=== PATIENT | male | born 1960 | race Caucasian/White ===

== ENCOUNTER 2018-12-28 07:49 | Inpatient (IN) ==
[2018-12-28 08:31] LABS: URINE SOURCE CLEAN CATCH
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
[2018-12-28 08:34] LABS: BASO# 0.03 X1000 (0.0-0.2); BASO% 0.5 % (0.0-0.8); EOS# 0.13 X1000 (0.0-0.7); EOS% 2.3 % (0.0-10.0); HEMATOCRIT 35.8 % (42.0-52.0); HEMOGLOBIN 11.4 g/dL (14.0-18.0); LYMPH# 1.79 X1000 (1.2-3.4); LYMPH% 32.3 % (20.5-51.1); MCH 28.1 PG (27-31); MCHC 31.8 g/dL (33-37); MCV 88.4 FL (81-99); MONO# 0.48 X1000 (0.11-0.59); MONO% 8.7 % (1.7-9.3); MPV 9.7 FL (7.4-10.4); NEUT# 3.11 X1000 (1.4-6.5); NEUT% 56.2 % (42.2-75.2); PLT 253 X1000 (130-400); RBC 4.05 XMIL (4.7-6.1); RDW 15.8 % (11.5-14.5); WBC 5.54 X1000 (4.8-10.8)
[2018-12-28 08:36] LABS: BILIRUBIN URINE NEGATIVE (NEGATIVE); BLOOD URINE SMALL (NEGATIVE); COLOR YELLOW; GLUCOSE URINE NEGATIVE (NEGATIVE); KETONE URINE NEGATIVE (NEGATIVE); LEUKOCYTES URINE NEGATIVE (NEGATIVE); NITRITE URINE NEGATIVE (NEGATIVE); PH URINE 6.5; PROTEIN URINE TRACE mg/dL (NEGATIVE); SP GRAVITY URINE 1.012; TURBIDITY URINE CLEAR (CLEAR); UROBILINOGEN URINE NORMAL (NORMAL)
[2018-12-28 08:37] LABS: UR EPITHELIAL CELLS <10 /HPF (<10); URINE BACTERIA NEGATIVE /HPF; URINE RBC <10 /HPF (<10); URINE WBC <10 /HPF (<10)
--- NOTE | 2018-12-28 08:39 | Diag Imaging Result Doc PS360 ---
EXAM: CHEST-1 VIEW 12/28/2018 HISTORY: psych TECHNIQUE: AP portable upright at 0826 COMMENT: There are no previous studies. There is ill-defined minimal opacity in the left base which may be due to bronchopneumonia. Advise clinical correlation. If possible a lateral might help. IMPRESSION: Questionable left lower lobe pneumonia. Electronically signed by Eliazar Trimble 12/28/2018 8:37 AM
[2018-12-28 08:47] LABS: UR AMPHETAMINES QUAL NONE DETECTED (NONE DETECT); UR BARBITUATES QUAL NONE DETECTED (NONE DETECT); UR BENZODIAZEPIN QUAL NONE DETECTED (NONE DETECT); UR CANNABINOIDS QUAL NONE DETECTED (NONE DETECT); UR COCAINE QUAL NONE DETECTED (NONE DETECT); UR METHADONE QUAL NONE DETECTED (NONE DETECT); UR OPIATES QUAL NONE DETECTED (NONE DETECT); UR OXYCODONE QUAL NONE DETECTED (NONE DETECT); UR PCP QUAL NONE DETECTED (NONE DETECT)
[2018-12-28 08:52] LABS: ACETAMINOPHEN < 1.2 ug/mL (10-30); AGAP 10; ALBUMIN 3.5 g/dL (3.5-5.0); ALKALINE PHOSPHATASE 92 U/L (32-122); BUN 9 mg/dL (8-22); CALCIUM 8.1 mg/dL (8.8-10.2); CHLORIDE 105 mmol/L (98-107); COSMO 274; CREATININE 0.8 mg/dL (0.7-1.2); ESTIMATED GFR > 60; GLUCOSE 94 mg/dL (70-104); GOT 15 U/L (10-34); GPT 9 U/L (10-44); POTASSIUM 3.9 mmol/L (3.5-5.1); SALICYLATES < 3.00 mg/dL (3-10); SODIUM 138 mmol/L (136-145); TCO2 23 mmol/L (25-35); TOTAL BILIRUBIN 0.76 mg/dL (0.20-1.00); TOTAL PROTEIN 7.1 g/dL (6.3-8.3)
[2018-12-28 09:25] LABS: FREE T4 1.13 ng/dL (0.93-1.70); TSH 1.38 uIUmL (0.27-4.20)
[2018-12-28] MEDS ORDERED: ZYPREXA PO ONE (09:47)
[2018-12-28] MEDS ORDERED: HALDOL IM ONE ×2 (12:15→15:25)
[2018-12-29] MEDS ORDERED: HALDOL IM ONE ×2 (04:41→20:03)
[2018-12-29] MEDS ORDERED: TYLENOL PO ONE ×2 (13:54→17:51)
--- NOTE | 2018-12-29 18:59 | Diag Imaging Result Doc PS360 ---
EXAM: CHEST-PORTABLE 12/29/2018 HISTORY: cough TECHNIQUE: AP portable upright at 1840 COMMENT: There is ill-defined opacity in the left base which was also present on 12/28/2018. There are no previous studies available for comparison. IMPRESSION: Left lower lobe pneumonia versus fibrosis. Electronically signed by Eliazar Trimble 12/29/2018 6:56 PM
--- NOTE | 2018-12-29 20:26 | Diag Imaging Result Doc PS360 ---
EXAM: CT THORAX W/O CONTRAST 12/29/2018 HISTORY: LLL Pneumonia vs fibrosis TECHNIQUE: This exam was performed using automated exposure control, adjustment of mA or kV according to patient size, and/or use of iterative reconstruction technique. COMMENT: There are no previous studies available for comparison. There is aorticopulmonary window adenopathy with a node measuring in excess of 17 mm. There are calcifications in the coronary arteries. There are no abnormal fluid collections. There are subpleural emphysematous changes in the right apex. There are diffuse small acinar opacities throughout both lungs with tree-in-bud opacities present in the lower portions of the upper lobes bilaterally and particularly in the left lower lobe. There is no evidence of honeycombing or bronchiectasis. There are some spondylotic changes in the lower cervical spine and to a lesser extent in the thoracic spine. There is no evidence of acute bony abnormality. IMPRESSION: Bronchiolitis, mild or early pneumonia and/or granulomatous disease. Comparison with previous studies would be helpful. Electronically signed by Eliazar Trimble 12/29/2018 8:23 PM
[2018-12-29] MEDS ORDERED: LEVAQUIN PO ONE (21:27)
[2018-12-30] MEDS ORDERED: TYLENOL PO PRN (00:16)
[2018-12-30] MEDS: DUONEB (A & A) INH SCH ×2 (03:00→15:36)
[2018-12-30] MEDS ORDERED: ATIVAN IM ONE (03:15)
[2018-12-30] MEDS: HALDOL IM PRN (03:28)
[2018-12-30 05:11] LABS: BASO# 0.02 X1000 (0.0-0.2); BASO% 0.5 % (0.0-0.8); EOS# 0.15 X1000 (0.0-0.7); EOS% 3.6 % (0.0-10.0); HEMATOCRIT 35.4 % (42.0-52.0); HEMOGLOBIN 11.1 g/dL (14.0-18.0); LYMPH# 1.44 X1000 (1.2-3.4); LYMPH% 34.4 % (20.5-51.1); MCH 28.1 PG (27-31); MCHC 31.4 g/dL (33-37); MCV 89.6 FL (81-99); MONO# 0.31 X1000 (0.11-0.59); MONO% 7.4 % (1.7-9.3); MPV 9.2 FL (7.4-10.4); NEUT# 2.26 X1000 (1.4-6.5); NEUT% 54.1 % (42.2-75.2); PLT 256 X1000 (130-400); RBC 3.95 XMIL (4.7-6.1); RDW 15.8 % (11.5-14.5); WBC 4.18 X1000 (4.8-10.8)
[2018-12-30 05:26] LABS: AGAP 8; ALB/GLOB RATIO 1.1; ALBUMIN 3.3 g/dL (3.5-5.0); ALKALINE PHOSPHATASE 80 U/L (32-122); BUN 10 mg/dL (8-22); CALCIUM 8.4 mg/dL (8.8-10.2); CHLORIDE 104 mmol/L (98-107); COSMO 271; CREATININE 0.7 mg/dL (0.7-1.2); ESTIMATED GFR > 60; GLUCOSE 98 mg/dL (70-104); GOT 17 U/L (10-34); GPT 9 U/L (10-44); POTASSIUM 4.2 mmol/L (3.5-5.1); SODIUM 136 mmol/L (136-145); TCO2 24 mmol/L (25-35); TOTAL BILIRUBIN 0.35 mg/dL (0.20-1.00); TOTAL PROTEIN 6.3 g/dL (6.3-8.3)
--- NOTE | 2018-12-30 07:04 | HISTORY AND PHYSICAL ---
REASON FOR ADMISSION: Cough for 4 months, fever 4 days and shortness of breath today. HISTORY OF PRESENT ILLNESS: Mr. Eric Weems is a 58-year-old man with known psychiatric issues. He is currently being held because of having homicidal ideations. When he came in he had a routine chest film because he complained of cough. At that time the x-ray was done with questionable left lower lobe pneumonia, but the patient was not unstable and did not have any objective fevers so we at that time were trying to transfer him to [facility] but they said they will not accept him until he is completely treated for his pneumonia. A CT scan was done to confirm officially that he had pneumonia and did suggest he has bronchitis. The patient admits to having a 4-day history of subjective fever and has a 4- month history of cough that comes on and off. No wheezing. No postnasal drip. No GI or complaints. No leg swelling or extremity redness. He denies any night sweats and he claims he has had 50 pound weight loss in 1 week. However, his appetite is very good. Mr. Eric Weems actually was asking me for more food when I was in the room. No polyuria, polydipsia or heat intolerance. REVIEW OF SYSTEMS: Patient is a very poor historian to be honest. His history cannot be relied on. However, his 12 systems were negative other than the findings noted as above. ALLERGIES: Geodon. MEDICATIONS: Home medications have not been reconciled. FAMILY HISTORY: Only notable for diabetes. SOCIAL HISTORY: Smokes 1 pack a day. No alcohol or illicit drug use. SURGERIES: He has only had an inguinal hernia surgery and back excised. LABORATORY WORK: White count 5000, hemoglobin and hematocrit 11 and 35, platelets 253,000. B12 is low at 211. UDS is negative including acetaminophen and salicylate. Urinalysis is grossly unremarkable. PHYSICAL EXAMINATION: VITAL SIGNS: His blood pressure is 153/91, heart rate is 70, respirations 16, temperature is 97.5. He is 98% on room air. GENERAL: Mr. Eric Weems is a 58-year-old man who is not in acute distress. He is alert and oriented to person, time, with normal mood and affect. He has no overt auditory hallucinations at this point in time. HEENT: Head is normocephalic, atraumatic. Eyes, FRANSISCO, EOMI. He is anicteric, not pale. ENT exam is grossly normal. NECK: Supple. No JVD or carotid bruit. No thyromegaly. CHEST: Clear when auscultated with no added sounds. CARDIOVASCULAR: First and 2nd heart sounds heard. No gallops or rubs. Rhythm is regular with occasional skipped beats. ABDOMEN: Benign, soft. No tenderness or megaly. Bowel sounds are normal. RECTAL: Exam deferred at this time. EXTREMITIES: Good distal pulses. Pulse volumes symmetrical, regular. No edema, clubbing or peripheral cyanosis. No gross focal deficits. No tremors. SKIN: Intact. No breakdown, lesion, erythema. MUSCULOSKELETAL: Grossly normal. ASSESSMENT: 1. Left lower lobe pneumonia. 2. Elevated blood pressure. 3. Vitamin B12 deficiency. 4. Chronic anemia. PLAN: We will start patient on p.o. Levaquin. Patient is always pulling out his IVs and does not allow for intravenous treatment at this point in time. We will also give patient p.r.n. nebulizer treatments. We will give patient IM vitamin B12 shots. Do an EKG to ensure no QT prolongation risk with Levaquin since patient may probably be started antipsychotics which also in their own right may increase the risk for QT prolongation. Patient can be assessed on a day-to-day basis and from my standpoint can be transferred and treated with oral agents across the street. The patient will also need one-to-one observation while he is under our service prior to transfer. cc: Corbin Morrell MD
--- NOTE | 2018-12-30 09:36 | EKG Report ---
Test Performed on : 12/28/2018 08:23:17 AM Test Reason : psych Blood Pressure : / mmHG Vent. Rate : 084 BPM Atrial Rate : 084 BPM P-R Int : 166 ms QRS Dur : 072 ms QT Int : 370 ms P-R-T Axes : 093 034 063 degrees QTc Int : 437 ms Normal sinus rhythm. Normal ECG When compared with ECG of 16-AUG-2018 06:56, No significant change was found Unconfirmed Result
--- NOTE | 2018-12-30 10:52 | PROGRESS NOTE ---
DATE: 12/30/2018 SUBJECTIVE: The patient resting in bed not in any obvious distress. OBJECTIVE: Vital Signs: Temperature 97.4 degrees, pulse 78, respiratory rate 20, blood pressure 148/75, and oxygen 99%. HEENT: Atraumatic, normocephalic. Cardiovascular: S1, S2. Respiratory: Evidence of good air entry bilaterally. Abdomen: Soft and nontender. No masses felt. Extremities: No evidence of edema. Central nervous system: No obvious focal deficit noted. LABORATORY: WBC is 4.1, hematocrit 35.4, with a platelet count of 256,000. Sodium is 136, potassium 4.2, chloride 104, bicarb is 24, BUN is 10, and creatinine 0.7. Chest CT shows a bronchiolitis which mild or early pneumonia or granulomatous disease. ASSESSMENT AND PLAN: 1. Community-acquired pneumonia. Continue antibiotics. Follow up on sputum as well as blood cultures. Check urine for Legionella as well as strep pneumonia antigen. Also check mycoplasma antibodies. 2. Hypertension. Optimize blood pressure control using oral agent. 3. Vitamin B12 deficiency. Start B12 replacement. 4. Major depression with [*]. Maintain patient on antidepressant, and once medically stable the patient will need to be transferred to [facility]. 5. Deep vein thrombosis prophylaxis. Sequential compression devices. 6. Gastrointestinal prophylaxis. Proton pump inhibitor. cc: Yehuda Costello MD
[2018-12-30] MEDS: CYANOCOBALAMIN IM SCH (14:59)
[2018-12-30] MEDS: ZOLOFT PO SCH (14:59)
[2018-12-30] MEDS: LEVAQUIN PO SCH (21:07)
[2018-12-31] MEDS: PROTONIX PO SCH (06:16)
[2018-12-31] MEDS: ZOLOFT PO SCH (09:27)
[2018-12-31] MEDS: CYANOCOBALAMIN IM SCH (09:27)
[2018-12-31] MEDS: DUONEB (A & A) INH PRN (11:13)
[2018-12-31] MEDS ORDERED: CYANOCOBALAMIN IM SCH (15:15)
--- NOTE | 2018-12-31 15:46 | PROGRESS NOTE ---
DATE: 12/31/2018 SUBJECTIVE: Today Mr. Weems was seen in his hospital room. There were two sitters with him at the time of the encounter. Mr. Weems referred to be doing a lot better and he was requesting when he will be able to be discharged. OBJECTIVE: Vital Signs: Blood pressure is 133/83, pulse is 90, respiration is 18, temperature is 97.2. Degrees patient was saturating 97% on room air. General: Mr. Weems is a 58-year-old male. He was standing up. He was not in any distress. HEENT: Mucosa is pink and moist. Anicteric. Acyanotic. Neck: Supple. Chest: Clear to auscultation. No crepitations. Minimum rhonchi every now and then. Cardiovascular: Regular rate and rhythm. No murmurs, no rubs, no gallops. Gastrointestinal: Abdomen is soft, nontender. Extremities: No pedal edema. Central Nervous System: Patient is awake and oriented. He does have some tremor distal tremors in the hands, especially in the right. It seems to be worse at rest and slightly improves with action. The patient also seems to have bradykinesia and hypomimia. LABORATORY DATA: Has been reviewed from yesterday. None today. Vitamin B12 level was 211, which is remarkably low. Thyroid functions are normal. ASSESSMENT: 1. Bronchiolitis with questionable early pneumonia more so on the left lower lobe. The patient is currently on antibiotics. Will continue with the same. Serologies have been sent. We are pending results. 2. B12 deficiency. This will continue to replace. 3. Normocytic anemia noted. 4. History of psychosis. Per notes in from 2012, apparently from [facility], it appears Mr. Weems was discharged in 2012 on trazodone, Neurontin and Risperdal. However, we do not have any records of his current medications. We will consult [facility] for evaluation. 5. Homicidal ideation. According to the patient, at this movement he does not have any homicidal or suicidal ideation. We will get [facility] to evaluate him. 6. Tobacco abuse with evidence on the CT scan concerning for possible COPD. Smoking cessation has been counseled and patient will be advised to follow up with Pulmonary Medicine. 7. 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 cc: MD MICK Ruiz
[2018-12-31] MEDS: FOLIC ACID PO SCH (20:42)
[2018-12-31] MEDS: LEVAQUIN PO SCH (20:42)
[2019-01-01] MEDS: LEVAQUIN PO SCH ×2 (01:41→21:38)
[2019-01-01] MEDS: PROTONIX PO SCH ×2 (05:53→07:31)
[2019-01-01] MEDS: FOLIC ACID PO SCH ×2 (09:23→21:38)
[2019-01-01] MEDS: ZOLOFT PO SCH (09:23)
[2019-01-01] MEDS: CYANOCOBALAMIN IM SCH (09:23)
[2019-01-01] MEDS: [UNRECOGNIZED DRUG - OTHER] PO SCH (09:23)
[2019-01-01] MEDS ORDERED: DESYREL PO ONE (10:51)
[2019-01-01] MEDS: NEURONTIN PO SCH ×2 (11:17→21:38)
[2019-01-01 13:04] LABS: MYCOPLASMA PNEUMO IGM BY IFA SEE COMMENTS; MYCOPLASMA PNEUMONIAE AB SEE COMMENTS
[2019-01-01] MEDS: DUONEB (A & A) INH PRN (15:20)
--- NOTE | 2019-01-01 15:22 | PROGRESS NOTE ---
DATE: 01/01/2019 SUBJECTIVE: Today Mr. Weems refers to be doing okay. He was just agitating, wanted to be discharged. I understand from the nurses that they have tried multiple times to get family members which have not returned their call. After multiple attempts, one of them did call and said he probably would be coming to pick him up either today or the first thing tomorrow morning. As I understand it, [facility] was consulted back again, and they still say the patient is not for inpatient psych with them. OBJECTIVE: Current vitals: Blood pressure is 136/79, pulse is 102, respirations 16, temperature 98.9 degrees. The patient was saturating 97%. General exam: Mr. Weems is a 58-year-old gentleman. He was in bed, no distress. HEENT: Mucosa is pink and moist. Anicteric. Acyanotic. Neck: Supple. Chest: Good air entry bilaterally. A few end-expiratory rhonchi. Cardiovascular: Regular rate and rhythm. No murmurs, no rubs, no gallops. Abdomen: Soft, nontender. Extremities: No pedal edema. BLANKER OPERATOR: Patient is awake, alert, oriented. No focal neurological deficit. Psychiatric: The patient denies any suicidal or homicidal ideations. Seems to have a little bit of flight of ideas, but otherwise he is very cooperative. LABORATORY DATA: No lab work for today. ASSESSMENT: 1. Bronchiolitis versus early pneumonia on the left lower lobe. The patient continues to be on antibiotics. 2. B 12 and folate deficiency. We will continue to replace. 3. History of psychotic disorder. We have restarted the patient on his Risperdal, trazodone and gabapentin at lower doses. 4. Tobacco abuse. The patient has been counseled. 5. Suspected undiagnosed chronic obstructive pulmonary disease. The patient has been advised to follow up with Pulmonary Medicine and avoid tobacco products. 6. Parkinsonism likely due to antipsychotic drug side effects. PLAN: So, in general, Mr. Weems seems to be doing fairly okay. He denies any suicidal or homicidal ideation. We are still awaiting for family members to come and see him and hopefully, once we have been reassured of his safety at home and continued medical care, we can discharge him accordingly. cc: Barrett Espinosa MD
[2019-01-01] MEDS ORDERED: DESYREL PO SCH (21:00)
[2019-01-01] MEDS ORDERED: RISPERDAL PO SCH (21:00)
[2019-01-01] MEDS: HALDOL IM PRN (22:30)
[2019-01-02] MEDS: PROTONIX PO SCH (05:39)
[2019-01-02 07:34] VITALS: BP 145/74
[2019-01-02] MEDS: CYANOCOBALAMIN IM SCH (09:04)
[2019-01-02] MEDS: FOLIC ACID PO SCH (09:04)
[2019-01-02] MEDS: ZOLOFT PO SCH (09:05)
[2019-01-02] MEDS: NEURONTIN PO SCH (09:05)
[2019-01-02] MEDS: [UNRECOGNIZED DRUG - OTHER] PO SCH (09:05)
== END 2019-01-02 12:23 | disposition home or self-care (01) | DRG 202 ==
LOC: SUPCPDRO → ED 07:49 → EDIPHOLD 12-30 03:32 → SUATTDRO 12-30 03:32 → 4N 12-30 07:10
PROVIDERS: ATTEND Internal Medicine
CPT/HCPCS: 71010; 71045; 71250; 80053; 80101; 80196; 80301; 80307; 80320; 80324; 80329; 80345; 80346; 80353; 80358; 80361; 80365; 81001; 82003; 82055; 82607; 82746; 83992; 84439; 84443; 85025; 86738; 87040; 87449; 87899; 93005; 94640; 94761; 94799; 96372; 99285; A9270; G0431; G0434; G0479; G0480; G6038; G6039; G6040; J1630; J2060; J3420